=== PATIENT | male | born 1955 | race Caucasian/White ===

== ENCOUNTER 2021-04-11 22:53 | Emergency (ER) | payer OTHER ==
[~2021-04-11] VITALS: Ht 175.3 cm; Wt 129.3 kg
[~2021-04-11 22:53] MED LIST: ALBUTEROL INHAL17 GM IH; CLONAZEPAM 1 MG1 M1 NG; CYMBALTA PO; ELAVIL; MEDROLDOSEPACK PO; NORCO 5-325 TA1 EACH PO; PERCOCET 5-3251 EACH PO; PREDNISONE50 MG PO; PRILOSEC 20 MG20 MG PO; PROAIR HFA8.5 GM IH; SEROQUEL XR 30300 M1 PO; SIMVASTATIN40 MG PO; WELLBUTRIN XL150 M1 PO; ZPAK PO
[2021-04-11 23:36] LABS: ABSOLUTE BASOPHILS 0.1 thou/uL (0.0-0.2); ABSOLUTE EOSINOPHILS 0.4 thou/uL (0.0-0.7); ABSOLUTE LYMPHOCYTES 2.7 thou/uL (0.8-5.3); ABSOLUTE MONOCYTES 0.7 thou/uL (0.0-1.2); ABSOLUTE NEUTROPHILS 4.2 thou/uL (1.6-8.1); BASOPHILS 1.2 %; EOSINOPHILS 5.3 %; HEMATOCRIT 41.1 % (42.0-52.0); HEMOGLOBIN 13.7 gm/dL (14.0-18.0); LYMPHOCYTES 32.7 %; MCH 30.1 pg (26.0-34.0); MCHC 33.4 g/dL (28.0-37.0); MCV 90.2 fL (80.0-100.0); MONOCYTES 9.1 %; MPV 8.5 fl. (7.2-11.1); NUCLEATED RBCS 0 /100WBC; PLATELET COUNT* 198 thou/uL (150-400); POLYS 51.7 %; RBC 4.56 mil/uL (4.50-6.00); RDW-CV 13.4 % (10.5-14.5); WBC 8.2 thou/uL (4.0-11.0)
[2021-04-12 00:06] LABS: CALCIUM 9.2 mg/dL (8.5-10.1); CREATININE 1.2 mg/dL (0.6-1.3); POTASSIUM 4.4 mmol/L (3.5-5.1)
[2021-04-12 00:14] LABS: MAGNESIUM 1.5 mg/dL (1.8-2.4); TOTAL BILIRUBIN 0.4 mg/dL (<0.1-1.0); TOTAL PROTEIN 7.1 g/dL (6.4-8.2)
[2021-04-12 00:39] LABS: URINE BILIRUBIN NEGATIVE (Negative); URINE BLOOD TRACE (Negative); URINE CLARITY CLEAR; URINE COLOR YELLOW; URINE GLUCOSE-RANDOM 1+ (Negative); URINE KETONES NEGATIVE (Negative); URINE LEUKOCYTES-REFLEX NEGATIVE (Negative); URINE NITRITE-REFLEX NEGATIVE (Negative); URINE PROTEIN NEGATIVE (Negative); URINE SPECIFIC GRAVITY <= 1.005 (1.005-1.030); URINE UROBILINOGEN 0.2 E.U./dl (0.2-1.0)
[2021-04-12 02:30] VITALS: BP 144/84
--- NOTE | 2021-04-12 11:10 | EKG ---
[place] [address] ELECTROCARDIOGRAM REPORT Name: ALBARO CASTILLO Room[facility] [id number] Admission: 04/11/21 Attend Phys: Discharge: 04/12/21 Date of : 51 Date of Service: 04/11/212301 Report #: [id number] THIS REPORT FOR: //name// [facility] ED Test Date: 2021-04-11 Test Time: 23:02:57 Pat Name: ALBARO CASTILLO Department: Room: Gender: Laboratory Associate: [facility] : 1955 Requested By: Dena Lindsey Order Number: [id number] MD: Sathya Stout Measurements Intervals [place] Rate: 137 P: NC: QRS: 41 QRSD: 82 T: 76 QT: 310 QTc: 468 Interpretive Statements Atrial fibrillation with a tachycardic ventricular response Repol abnrm; anterolateral ischemia must be considered Baseline wander in lead(s) V2,V4,V5,V6 Compared to ECG 11/06/2010 00:15:18 Early repolarization now present Possible ischemia now present Sinus tachycardia no longer present Atrial fibrillation has developed Electronically Signed On 04-12-2021 11:10:10 CDT by Sathya Stout [email or web address] <ELECTRONICALLY SIGNED> By: Sathya Stout MD, [facility] 04/12/21 1110 01 01 Sathya Stout MD, [facility] /EPI
== END 2021-04-12 02:30 | disposition home or self-care (01) ==
LOC: M.ERS 22:53
PROVIDERS: Emergency Medicine
DX: I48.20 Chronic atrial fibrillation, unspecified (principal); Z20.822 Contact with and (suspected) exposure to COVID-19; F32.9 Major depressive disorder, single episode, unspecified; F41.9 Anxiety disorder, unspecified; E78.00 Pure hypercholesterolemia, unspecified; Z96.643 Presence of artificial hip joint, bilateral; Z96.653 Presence of artificial knee joint, bilateral; Z79.899 Other long term (current) drug therapy; Z88.8 Allergy status to other drugs, medicaments and biological substances